=== PATIENT | male | born 1985 | race Caucasian/White ===

== ENCOUNTER 2018-06-13 14:23 | Emergency (ER) | payer OTHER ==
[2018-06-13 14:56] VITALS: BP 137/88
--- NOTE | 2018-06-13 16:13 | ED Physician Documentation ---
History of Present Illness - Stated complaint Stated Complaint: EYE PX - Chief complaint Chief Complaint: Heent - History obtained from History obtained from: Patient - History of Present Illness Timing: Yesterday Pain level max: 0 Pain level now: 0 - Additonal information Additional information: Patient has had viral URI symptoms recently. Today noticed redness to the bilateral eyes with burning and itching. Clear drainage. Nothing makes it better or worse. No fevers. Does have rhinorrhea and congestion Review of Systems Constitutional: denies: Fever, Chills GI: denies: Vomiting Skin: denies: Rash Musculoskeletal: denies: Neck pain, Back pain Neurologic: denies: Headache PD PAST MEDICAL HISTORY - Past Medical History Past Medical History: No Cardiovascular: None Respiratory: None Neuro: None Endocrine/Autoimmune: None GI: None : None HEENT: None Psych: None Musculoskeletal: None Derm: None - Past Surgical History Past Surgical History: No - Present Medications Home Medications: Ambulatory Orders Medication Instructions Recorded Confirmed Ketotifen Fumarate [Zaditor] 1 drops EACHEYE Q8H PRN #1 bottle 06/13/18 Polymyxin B/Trimeth Ophth Drop 1 drops EACHEYE Q3H 7 Days #1 06/13/18 [Polytrim Ophth Drops] bottle - Allergies Allergies/Adverse Reactions: Allergies Allergy/AdvReac Type Severity Reaction Status Date / Time No Known Drug Allergies Allergy Verified 06/13/18 14:56 - Social History Does the pt smoke?: No Smoking Status: Never smoker Does the pt drink ETOH?: No Does the pt have substance abuse?: No - Immunizations Immunizations are current?: Yes - POLST Patient has POLST: No PD ED PE NORMAL - Vitals Vital signs reviewed: Yes - General General: Alert and oriented X 3, No acute distress - HEENT HEENT: Ears normal, Moist mucous membranes, Pharynx benign, Other (Bilateral injected conjunctiva. Clear drainage. Normal lids.) - Neck Neck: Supple, no meningeal sign - Cardiac Cardiac: RRR, Strong equal pulses - Respiratory Respiratory: No respiratory distress, Clear bilaterally - Derm Derm: Warm and dry - Neuro Neuro: Alert and oriented X 3 Results - Vitals Vitals: Vital Signs - 24 hr 06/13/18 14:53 Temperature 36.4 C L Heart Rate 85 Respiratory 14 Rate Blood Pressure 137/88 H O2 Saturation 99 Oxygen O2 Source Room air PD MEDICAL DECISION MAKING - ED course Complexity details: considered differential, d/w patient ED course: Patient is a 32-year-old male who presents with bilateral conjunctivitis, unclear if this is viral or bacterial. Will place on Polytrim ophthalmic and ketotifen drops for home. Patient is well-appearing, nontoxic. Patient counseled regarding signs and symptoms for which I believe and urgent re- evaluation would be necessary. Patient with good understanding of and agreement to plan and is comfortable going home at this time This document was made in part using voice recognition software. While efforts are made to proofread this document, sound alike and grammatical errors may occur. Departure - Departure Disposition: Home, Self Care Clinical Impression: Conjunctivitis Qualifiers: Conjunctivitis type: acute Acute conjunctivitis type: unspecified Laterality: bilateral Qualified Code(s): H10.33 - Unspecified acute conjunctivitis, bilateral Condition: Good Instructions: ED Conjunctivitis Nonspecific Follow-Up: your,doctor in 1 week [Other] Prescriptions: Ketotifen Fumarate [Zaditor] 1 drops EACHEYE Q8H PRN #1 bottle PRN Reason: itching Polymyxin B/Trimeth Ophth Drop [Polytrim Ophth Drops] 1 drops EACHEYE Q3H 7 Days #1 bottle Comments: Use the medications as prescribed. Return if you worsen. Follow-up with your doctor for further care. Discharge Date/Time: 06/13/18 16:16
== END 2018-06-13 16:16 | disposition home or self-care (01) ==
LOC: EDSEX → ED 14:23
DX: H10.33 Unspecified acute conjunctivitis, bilateral (principal); J34.89 Other specified disorders of nose and nasal sinuses
CPT/HCPCS: 99283